=== PATIENT | female | born 2000 | race Caucasian/White ===

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

== ENCOUNTER 2020-10-24 22:30 | Emergency (ER) | payer MEDICAID, OTHER | END 2020-10-25 00:14 | disposition left against medical advice (07) | LOC: ER 22:30 | DX: Z53.21 Procedure and treatment not carried out due to patient leaving prior to being seen by health care provider (principal) ==

== ENCOUNTER 2023-11-28 21:55 | Emergency (ER) | payer MEDICAID, OTHER ==
[~2023-11-28] VITALS: Ht 160 cm; Wt 87.6 kg
[2023-11-28 22:07] VITALS: O2SAT 99
[2023-11-28 23:09] LABS: BASOPHILS % 0.5 % (0.0-2.0); DIFFERENTIAL COMMENT 0; HEMATOCRIT. 34.9 % (36.0-48.0); HEMOGLOBIN. 11.1 g/dL (12.0-16.0); LYMPHOCYTES % 23.7 % (20.0-50.0); MEAN CORPUSCULAR HEMOGLOBIN 24.2 pg (28.0-32.0); MEAN CORPUSCULAR HGB CONC 31.9 g/dL (31.0-37.0); MEAN CORPUSCULAR VOLUME 75.7 fL (81.0-99.0); MEAN PLATELET VOLUME 9.1 fl (7.4-10.4); MONOCYTES % 8.7 % (2.0-8.0); NEUTROPHILS % 65.1 % (40.0-76.0); PLATELET 265 x1000/uL (130-400); RED BLOOD CELL COUNT 4.61 mill/uL (4.2-5.4); RED CELL DISTRIBUTION WIDTH 16.5 % (11.6-14.6); WHITE BLOOD COUNT 14.1 x1000/uL (4.5-11.0)
[2023-11-28 23:14] LABS: CHLORIDE 103 mEq/L (98-107); POTASSIUM 3.8 mEq/L (3.5-5.1); SODIUM 133 mEq/L (136-145)
[2023-11-28 23:15] LABS: CARBON DIOXIDE 24 mEq/L (21-32)
[2023-11-28 23:16] LABS: CALCIUM 8.1 mg/dL (8.7-10.4)
[2023-11-28 23:18] LABS: INR 0.9; PROTHROMBIN TIME 10.3 sec (9.6-11.0)
[2023-11-28 23:20] LABS: CREATININE 0.5 mg/dL (0.6-1.0); GLUCOSE 119 mg/dL (70-105)
[2023-11-28 23:21] LABS: UREA NITROGEN BLOOD 7 mg/dL (9-23)
[2023-11-28 23:22] LABS: ETHANOL BLOOD < 10 mg/dL (<10)
[2023-11-29] MEDS ORDERED: KETOROLAC 30MG/ML VIAL IV ONE (00:15)
[2023-11-29] MEDS ORDERED: METOCLOPRAMIDE HCL 10MG/2ML VIAL IV ONE (00:15)
[2023-11-29] MEDS ORDERED: ASPIRIN 325MG TABLET PO ONE (00:15)
[2023-11-29] MEDS ORDERED: DIPHENHYDRAMINE 50MG/ML VIAL IV ONE (00:15)
[2023-11-29] MEDS ORDERED: ASPI-1406 MT (00:48)
[2023-11-29] MEDS: DIPHENHYDRAMINE 50MG/ML VIAL IV NR (01:04)
[2023-11-29] MEDS: SODIUM CHLORIDE 0.9% 1,000 ML IV ONE (01:04)
[2023-11-29] MEDS: KETOROLAC 30MG/ML VIAL IV NR (01:04)
[2023-11-29] MEDS: METOCLOPRAMIDE HCL 10MG/2ML VIAL IV NR (01:04)
[2023-11-29] MEDS: ASPIRIN 325MG TABLET PO NR (01:05)
[2023-11-29 02:35] VITALS: BP 115/82; PULSE 89; RESP 13; TEMP 98.2
== END 2023-11-29 02:45 | disposition home or self-care (01) ==
LOC: ER 21:55
DX: R51.9 Headache, unspecified (principal); R20.0 Anesthesia of skin
CPT/HCPCS: 80048; 80320; 85025; 85610; 36415; 70496; 70498; 70450; 99285; 96361; 96374; 96375; J1200; J1885; J2765; J7030; Z7610; G0480

== ENCOUNTER 2023-11-29 15:48 | Emergency (ER) | payer MEDICAID ==
[~2023-11-29] VITALS: Ht 167.6 cm; Wt 97.0 kg
[~2023-11-29 15:48] MED LIST: ASPI-1406 MT
[2023-11-29 15:58] VITALS: O2SAT 100
[2023-11-29 16:45] VITALS: BP 129/75; PULSE 85; RESP 16; TEMP 98.3
== END 2023-11-29 17:02 | disposition home or self-care (01) ==
LOC: ER 15:48
DX: R20.2 Paresthesia of skin (principal); F41.9 Anxiety disorder, unspecified
CPT/HCPCS: 99281

== ENCOUNTER 2024-09-30 19:58 | Emergency (ER) | payer MEDICAID ==
[~2024-09-30] VITALS: Ht 160 cm; Wt 81.0 kg
[2024-09-30 20:04] VITALS: O2SAT 98
[2024-09-30] MEDS ORDERED: AMOX1TAB16 MT (22:00)
[2024-09-30] MEDS: AMOXICILLIN/POTASSIUM CLAVULANATE 875/125MG TAB PO ONE (22:12)
[2024-09-30 22:48] VITALS: BP 149/99; PULSE 95; RESP 18; TEMP 36.8; O2SAT 99
== END 2024-09-30 22:48 | disposition home or self-care (01) ==
LOC: ER 19:58
DX: S81.852A Open bite, left lower leg, initial encounter (principal); F41.9 Anxiety disorder, unspecified; Z79.82 Long term (current) use of aspirin; W55.01XA Bitten by cat, initial encounter; Y93.89 Activity, other specified; Y92.89 Other specified places as the place of occurrence of the external cause; Y99.8 Other external cause status
CPT/HCPCS: 99283